=== PATIENT | female | born 1945 | race Two or more races ===

== ENCOUNTER 2017-06-29 10:24 | Outpatient (CLI) | payer OTHER | END 2017-06-29 12:59 | disposition home or self-care (01) | LOC: LAB 10:24 | DX: D64.89 Other specified anemias (principal); E11.9 Type 2 diabetes mellitus without complications; I10 Essential (primary) hypertension; N28.89 Other specified disorders of kidney and ureter; E07.89 Other specified disorders of thyroid; R10.84 Generalized abdominal pain ==

== ENCOUNTER 2017-06-29 10:32 | Outpatient (CLI) | payer OTHER | END 2017-06-29 10:41 | disposition home or self-care (01) | LOC: SONOGRAMA 10:32 | DX: R10.84 Generalized abdominal pain (principal) ==

== ENCOUNTER 2017-10-18 10:58 | Outpatient (CLI) | payer OTHER | END 2017-10-18 11:01 | disposition home or self-care (01) | LOC: LAB 10:58 | DX: R10.84 Generalized abdominal pain (principal) ==

== ENCOUNTER 2017-12-03 07:21 | Outpatient (CLI) | payer OTHER | END 2017-12-03 07:30 | disposition home or self-care (01) | LOC: LAB 07:21 | DX: D53.0 Protein deficiency anemia (principal); D63.1 Anemia in chronic kidney disease; N18.3 Chronic kidney disease, stage 3 (moderate); D51.3 Other dietary vitamin B12 deficiency anemia; E03.8 Other specified hypothyroidism; E78.4 Other hyperlipidemia; E55.9 Vitamin D deficiency, unspecified; E08.65 Diabetes mellitus due to underlying condition with hyperglycemia; E08.21 Diabetes mellitus due to underlying condition with diabetic nephropathy; E08.22 Diabetes mellitus due to underlying condition with diabetic chronic kidney disease; I10 Essential (primary) hypertension; H40.89 Other specified glaucoma; H25.13 Age-related nuclear cataract, bilateral; D50.8 Other iron deficiency anemias; D51.8 Other vitamin B12 deficiency anemias; R19.5 Other fecal abnormalities; K90.89 Other intestinal malabsorption ==

== ENCOUNTER 2017-12-06 10:36 | Outpatient (CLI) | payer OTHER | END 2017-12-06 10:40 | disposition home or self-care (01) | LOC: LAB 10:36 | DX: D53.0 Protein deficiency anemia (principal); D63.1 Anemia in chronic kidney disease; N18.3 Chronic kidney disease, stage 3 (moderate); D51.3 Other dietary vitamin B12 deficiency anemia; E03.8 Other specified hypothyroidism; E78.4 Other hyperlipidemia; E56.9 Vitamin deficiency, unspecified; E08.65 Diabetes mellitus due to underlying condition with hyperglycemia; E08.21 Diabetes mellitus due to underlying condition with diabetic nephropathy; E08.22 Diabetes mellitus due to underlying condition with diabetic chronic kidney disease; I10 Essential (primary) hypertension; H40.89 Other specified glaucoma; H25.13 Age-related nuclear cataract, bilateral; R19.5 Other fecal abnormalities; E55.9 Vitamin D deficiency, unspecified; K90.89 Other intestinal malabsorption; Z12.11 Encounter for screening for malignant neoplasm of colon ==

== ENCOUNTER 2017-12-06 12:58 | Outpatient (CLI) | payer OTHER | END 2017-12-06 13:01 | disposition home or self-care (01) | LOC: MAMO-SONO 12:58 | DX: Z12.31 Encounter for screening mammogram for malignant neoplasm of breast (principal); Z87.898 Personal history of other specified conditions; N60.12 Diffuse cystic mastopathy of left breast; N60.11 Diffuse cystic mastopathy of right breast ==

== ENCOUNTER → 2018-04-01 06:50 | Outpatient (CLI) | payer OTHER | END | disposition home or self-care (01) | LOC: LAB 06:50 | DX: E11.22 Type 2 diabetes mellitus with diabetic chronic kidney disease (principal); D53.0 Protein deficiency anemia; N18.3 Chronic kidney disease, stage 3 (moderate); D63.1 Anemia in chronic kidney disease; D51.3 Other dietary vitamin B12 deficiency anemia; E03.8 Other specified hypothyroidism; E55.9 Vitamin D deficiency, unspecified; I10 Essential (primary) hypertension; H25.13 Age-related nuclear cataract, bilateral; R97.0 Elevated carcinoembryonic antigen [CEA]; D50.8 Other iron deficiency anemias; E78.2 Mixed hyperlipidemia; E66.3 Overweight; H40.89 Other specified glaucoma ==

== ENCOUNTER 2018-04-17 08:32 | Outpatient (CLI) | payer OTHER | END 2018-04-17 08:41 | disposition home or self-care (01) | LOC: RAD 08:32 | DX: R97.0 Elevated carcinoembryonic antigen [CEA] (principal) ==

== ENCOUNTER 2018-08-14 07:46 | Outpatient (CLI) | payer OTHER | END 2018-08-14 07:50 | disposition home or self-care (01) | LOC: LAB 07:46 | DX: E03.8 Other specified hypothyroidism (principal); N18.2 Chronic kidney disease, stage 2 (mild); I10 Essential (primary) hypertension; E11.21 Type 2 diabetes mellitus with diabetic nephropathy; R80.8 Other proteinuria; E11.65 Type 2 diabetes mellitus with hyperglycemia; E66.09 Other obesity due to excess calories; M85.89 Other specified disorders of bone density and structure, multiple sites; E78.2 Mixed hyperlipidemia ==

== ENCOUNTER 2018-09-02 08:29 | Outpatient (CLI) | payer OTHER | END 2018-09-02 11:30 | disposition home or self-care (01) | LOC: LAB 08:29 | DX: D53.0 Protein deficiency anemia (principal); D63.1 Anemia in chronic kidney disease; D51.3 Other dietary vitamin B12 deficiency anemia; E03.8 Other specified hypothyroidism; E78.49 Other hyperlipidemia; E55.9 Vitamin D deficiency, unspecified; E08.65 Diabetes mellitus due to underlying condition with hyperglycemia; E08.21 Diabetes mellitus due to underlying condition with diabetic nephropathy; E08.22 Diabetes mellitus due to underlying condition with diabetic chronic kidney disease; I10 Essential (primary) hypertension; H40.89 Other specified glaucoma; H25.13 Age-related nuclear cataract, bilateral; D50.8 Other iron deficiency anemias; D51.8 Other vitamin B12 deficiency anemias; R97.0 Elevated carcinoembryonic antigen [CEA]; K90.89 Other intestinal malabsorption ==

== ENCOUNTER → 2018-12-09 | Outpatient (CLI) | payer OTHER | END | disposition home or self-care (01) | LOC: RAD 12:17 | DX: R07.89 Other chest pain (principal) ==

== ENCOUNTER 2019-02-25 07:16 | Outpatient (CLI) | payer OTHER | END 2019-02-25 08:15 | disposition home or self-care (01) | LOC: NUCLEAR 07:16 | DX: I11.9 Hypertensive heart disease without heart failure (principal) | CPT/HCPCS: 78452; 93017; A9500; J0153 ==

== ENCOUNTER 2019-04-03 07:49 | Outpatient (CLI) | payer OTHER | END 2019-04-03 07:54 | disposition home or self-care (01) | LOC: LAB 07:49 | DX: E03.8 Other specified hypothyroidism (principal); E11.65 Type 2 diabetes mellitus with hyperglycemia; I10 Essential (primary) hypertension; E66.3 Overweight ==

== ENCOUNTER 2019-04-29 07:20 | Outpatient (CLI) | payer OTHER | END 2019-04-29 07:25 | disposition home or self-care (01) | LOC: LAB 07:20 | DX: D53.0 Protein deficiency anemia (principal); D63.1 Anemia in chronic kidney disease; N18.3 Chronic kidney disease, stage 3 (moderate); D51.3 Other dietary vitamin B12 deficiency anemia; E03.8 Other specified hypothyroidism; E78.49 Other hyperlipidemia; E55.9 Vitamin D deficiency, unspecified; E08.65 Diabetes mellitus due to underlying condition with hyperglycemia; E08.21 Diabetes mellitus due to underlying condition with diabetic nephropathy; E08.22 Diabetes mellitus due to underlying condition with diabetic chronic kidney disease; H40.89 Other specified glaucoma; H25.13 Age-related nuclear cataract, bilateral; D50.8 Other iron deficiency anemias; D51.8 Other vitamin B12 deficiency anemias; K90.89 Other intestinal malabsorption ==

== ENCOUNTER 2019-12-30 08:44 | Outpatient (CLI) | payer OTHER | END 2019-12-30 08:58 | disposition home or self-care (01) | LOC: MAMO-SONO 08:44 | PROVIDERS: ATTEND Surgery | DX: Z12.31 Encounter for screening mammogram for malignant neoplasm of breast (principal); Z87.898 Personal history of other specified conditions; N60.32 Fibrosclerosis of left breast ==

== ENCOUNTER 2020-01-22 13:49 | Outpatient (CLI) | payer OTHER | END 2020-01-22 15:18 | disposition home or self-care (01) | LOC: NUCLEAR 13:49 | PROVIDERS: ATTEND Internal Medicine Endocrinology, Diabetes & Metabolism | DX: M81.0 Age-related osteoporosis without current pathological fracture (principal); Z13.820 Encounter for screening for osteoporosis ==

== ENCOUNTER 2020-04-23 14:23 | Outpatient (CLI) | payer OTHER | END 2020-04-23 15:01 | disposition home or self-care (01) | LOC: RAD 14:23 | PROVIDERS: ATTEND Family Medicine Adult Medicine | DX: S29.8XXA Other specified injuries of thorax, initial encounter (principal) ==

== ENCOUNTER 2021-01-17 09:48 | Outpatient (CLI) | payer OTHER | END 2021-01-17 09:59 | disposition home or self-care (01) | LOC: MAMO-SONO 09:48 | PROVIDERS: ATTEND Family Medicine Adult Medicine | DX: R92.0 Mammographic microcalcification found on diagnostic imaging of breast (principal); N64.59 Other signs and symptoms in breast; Z12.31 Encounter for screening mammogram for malignant neoplasm of breast ==

== ENCOUNTER 2021-06-07 07:31 | Outpatient (CLI) | payer OTHER | END 2021-06-07 07:35 | disposition home or self-care (01) | LOC: LAB 07:31 | PROVIDERS: ATTEND Internal Medicine Endocrinology, Diabetes & Metabolism | DX: D64.89 Other specified anemias (principal); E03.8 Other specified hypothyroidism; E78.2 Mixed hyperlipidemia; M81.0 Age-related osteoporosis without current pathological fracture; M85.88 Other specified disorders of bone density and structure, other site; E11.65 Type 2 diabetes mellitus with hyperglycemia; R94.5 Abnormal results of liver function studies; E83.51 Hypocalcemia; E83.52 Hypercalcemia ==

== ENCOUNTER 2021-06-22 08:44 | Outpatient (CLI) | payer OTHER | END 2021-06-22 08:51 | disposition home or self-care (01) | LOC: LAB 08:44 | DX: B35.1 Tinea unguium (principal); B16.1 Acute hepatitis B with delta-agent without hepatic coma ==

== ENCOUNTER 2021-08-31 08:21 | Outpatient (CLI) | payer OTHER | END 2021-08-31 10:15 | disposition home or self-care (01) | LOC: LAB 08:21 | PROVIDERS: ATTEND Family Medicine Adult Medicine | DX: I25.111 Atherosclerotic heart disease of native coronary artery with angina pectoris with documented spasm (principal); E11.42 Type 2 diabetes mellitus with diabetic polyneuropathy; E03.9 Hypothyroidism, unspecified; E11.620 Type 2 diabetes mellitus with diabetic dermatitis ==

== ENCOUNTER 2021-12-27 07:25 | Outpatient (CLI) | payer OTHER | END 2021-12-27 07:31 | disposition home or self-care (01) | LOC: LAB 07:25 | PROVIDERS: ATTEND Internal Medicine Cardiovascular Disease | DX: I11.9 Hypertensive heart disease without heart failure (principal); E11.9 Type 2 diabetes mellitus without complications ==

== ENCOUNTER → 2022-01-23 11:37 | Outpatient (CLI) | payer OTHER | END | disposition home or self-care (01) | LOC: NUCLEAR 11:00 | PROVIDERS: ATTEND Internal Medicine Endocrinology, Diabetes & Metabolism | DX: M85.89 Other specified disorders of bone density and structure, multiple sites (principal); Z88.6 Allergy status to analgesic agent; Z88.8 Allergy status to other drugs, medicaments and biological substances ==

== ENCOUNTER 2022-01-25 11:16 | Outpatient (CLI) | payer OTHER | END 2022-01-25 11:26 | disposition home or self-care (01) | LOC: MAMO-SONO 11:16 | PROVIDERS: ATTEND Surgery | DX: N60.32 Fibrosclerosis of left breast (principal) ==

== ENCOUNTER 2022-01-26 13:09 | Outpatient (CLI) | payer OTHER | END 2022-01-26 13:11 | disposition home or self-care (01) | LOC: NUCLEAR 13:09 | PROVIDERS: ATTEND Internal Medicine Cardiovascular Disease | DX: E85.9 Amyloidosis, unspecified (principal); Z88.8 Allergy status to other drugs, medicaments and biological substances; Z88.6 Allergy status to analgesic agent | CPT/HCPCS: 78803; A9538 ==

== ENCOUNTER 2022-07-04 08:02 | Outpatient (CLI) | payer OTHER | END 2022-07-04 08:52 | disposition home or self-care (01) | LOC: LAB 08:02 | DX: R94.5 Abnormal results of liver function studies (principal); E11.65 Type 2 diabetes mellitus with hyperglycemia; E03.8 Other specified hypothyroidism; E78.2 Mixed hyperlipidemia; E55.9 Vitamin D deficiency, unspecified ==

== ENCOUNTER 2022-10-23 07:41 | Outpatient (CLI) | payer OTHER | END 2022-10-23 07:42 | disposition home or self-care (01) | LOC: LAB 07:41 | PROVIDERS: ATTEND Internal Medicine Endocrinology, Diabetes & Metabolism | DX: E11.65 Type 2 diabetes mellitus with hyperglycemia (principal); E03.8 Other specified hypothyroidism; E55.9 Vitamin D deficiency, unspecified; E78.2 Mixed hyperlipidemia; R80.9 Proteinuria, unspecified; N18.30 Chronic kidney disease, stage 3 unspecified; E11.22 Type 2 diabetes mellitus with diabetic chronic kidney disease ==

== ENCOUNTER 2023-07-09 07:24 | Outpatient (CLI) | payer OTHER ==
[2023-07-10 10:11] LABS: C PEPTIDE 3.1 ng/mL (1.1-4.4)
== END 2023-07-09 07:25 | disposition home or self-care (01) ==
LOC: LAB 07:24
PROVIDERS: ATTEND Internal Medicine Endocrinology, Diabetes & Metabolism
DX: E10.65 Type 1 diabetes mellitus with hyperglycemia (principal)

== ENCOUNTER 2024-10-13 09:47 | Outpatient (CLI) | payer OTHER | END 2024-10-13 09:53 | disposition home or self-care (01) | LOC: MAMO-SONO 09:47 | PROVIDERS: ATTEND Surgery | DX: N60.32 Fibrosclerosis of left breast (principal); Z12.31 Encounter for screening mammogram for malignant neoplasm of breast ==

== ENCOUNTER 2025-03-17 07:09 | Outpatient (CLI) | payer OTHER | END 2025-03-17 07:10 | disposition home or self-care (01) | LOC: NUCLEAR 07:09 | PROVIDERS: ATTEND Internal Medicine | DX: I20.9 Angina pectoris, unspecified (principal) | CPT/HCPCS: 78452; 93017; A9500; J0153 ==